=== PATIENT | female | born 1935 | race Caucasian/White ===

== ENCOUNTER 2018-03-10 15:00 | Inpatient (IN) | payer MEDICARE ==
[~2018-03-10] VITALS: Ht 163.8 cm; Wt 67.6 kg
--- NOTE | ~2018-03-10 | PN ---
PATIENT:BRADEN ORDAZ MEDICAL RECORD: [id number] LOCATION:[facility] ADMISSION DATE: 03/10/18 PROGRESS NOTE DATE OF SERVICE: 03/17/2018 SUBJECTIVE: The patient's case was discussed with staff. She has no new complaint. OBJECTIVE: The patient is in good behavioral control with limited insight about her condition. She does tolerate her medications well. ASSESSMENT: No change in diagnoses. PLAN: Brief supportive and educational interventions were made. Long-term prognosis is guarded. TRANSINT:[id number] Voice Confirmation ID: [id number] DOCUMENT ID: [id number] KADE ALLAN MD at 1436 CC: [id number] DICTATION DATE: 03/17/18 1509 FORCE VARIATION EQUIPMENT TENDER: 03/17/18 1537 ADM IN [place] [id number] [place] [address]
--- NOTE | ~2018-03-10 | PN ---
PATIENT:BRADEN ORDAZ MEDICAL RECORD: [id number] LOCATION:[facility] ADMISSION DATE: 03/10/18 PROGRESS NOTE DATE OF SERVICE: 03/23/2018 SUBJECTIVE: The patient's case was discussed with staff. She has no new complaint. OBJECTIVE: The patient is in good behavioral control with limited insight about her condition. She tolerates her medicines well. ASSESSMENT: No change in diagnoses. PLAN: Current medicines and therapies have been reviewed and will be maintained. Her long-term prognosis is guarded. I anticipate she can be transitioned back to the residential soon if this level of improvement is maintained. The patient seems to believe that she is more stable on her feet than she actually is. I have instructed her not to walk without assistance and I have asked that physical therapy be ordered. She says that she understands this, but I doubt she is going to remember it. I have asked the nursing staff to watch her extra closely to make sure she does not try to walk without assistance. TRANSINT:[id number] Voice Confirmation ID: [id number] DOCUMENT ID: [id number] KADE ALLAN MD at 1431 CC: [id number] DICTATION DATE: 03/23/18 1411 CONTACT LENS INSPECTOR: 03/23/18 1427 ADM IN [place] [id number] [place] [address]
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
--- NOTE | ~2018-03-10 | PN ---
PATIENT:BRADEN ORDAZ MEDICAL RECORD: [id number] LOCATION:[facility] ADMISSION DATE: 03/10/18 PROGRESS NOTE DATE OF SERVICE: 03/13/2018 SUBJECTIVE: The patient repeatedly states that she does not know why she is here. OBJECTIVE: Staff report the patient had been quite aggressive and easily agitated, but this morning is somewhat calmer. She also states repeatedly that she wants her car. On exam, mood is slightly anxious. Affect brittle. Speech is repetitive. Content of thought is negative for clear cut psychosis. Sensorium shows no change. ASSESSMENT: No change in diagnosis. PLAN: 1. Maintain current medication. 2. Continue supportive therapy. TRANSINT:[id number] Voice Confirmation ID: [id number] DOCUMENT ID: [id number] JAQUI LOMAS III, MD at 0535 CC: [id number] DICTATION DATE: 03/13/18 1122 SEED PRODUCTION FIELD SUPERVISOR: 03/13/18 1326 ADM IN [facility] [address] [place] [address]
--- NOTE | ~2018-03-10 | PN ---
PATIENT:BRADEN ORDAZ MEDICAL RECORD: [id number] LOCATION:[facility] ADMISSION DATE: 03/10/18 PROGRESS NOTE DATE OF SERVICE: 03/19/2018 SUBJECTIVE: The patient's case was discussed with staff. She has no new complaint. OBJECTIVE: The patient is in good behavioral control with poor insight about her condition. She generally tolerates her medicines well. ASSESSMENT: No change in diagnoses. PLAN: Brief supportive and educational interventions were made. Care Home prognosis is guarded. TRANSINT:[id number] Voice Confirmation ID: [id number] DOCUMENT ID: [id number] KADE ALLAN MD at 1412 CC: [id number] DICTATION DATE: 03/19/18 1347 SUPERINTENDENT TRANSMISSION: 03/19/18 1442 ADM IN [place] [id number] [place] [address]
--- NOTE | ~2018-03-10 | PN ---
PATIENT:BRADEN ORDAZ MEDICAL RECORD: [id number] LOCATION:[facility]112 ADMISSION DATE: 03/10/18 PROGRESS NOTE DATE OF SERVICE: 03/20/2018 SUBJECTIVE: The patient is hoping that she can go home soon. OBJECTIVE: The patient is somewhat dysphoric, but otherwise stable. She is taking medication as prescribed. Affect remains somewhat brittle. Speech is terse. Content of thought is negative for overt psychosis. Sensorium is unchanged. ASSESSMENT: No change in diagnosis. PLAN: 1. Continue current medication. 2. Continue supportive therapy. TRANSINT:[id number] Voice Confirmation ID: [id number] DOCUMENT ID: [id number] JAQUI LOMAS III, MD at 0628 CC: [id number] DICTATION DATE: 03/20/18 1109 BARREL RIFLER OPERATOR: 03/20/18 1442 ADM IN [place] [id number] [place] [address]
--- NOTE | ~2018-03-10 | PN ---
PATIENT:BRADEN ORDAZ MEDICAL RECORD: [id number] LOCATION:[facility] ADMISSION DATE: 03/10/18 PROGRESS NOTE DATE OF SERVICE: 03/12/2018 SUBJECTIVE: The patient's case was discussed with staff. She has no new complaint. OBJECTIVE: The patient is in good behavioral control with limited insight about her condition. She generally tolerates her medicines well. ASSESSMENT: No change in diagnoses. PLAN: Current medicines have been reviewed. I am going to reduce her Celexa slightly and will give consideration to a different antidepressant. I plan to taper the Celexa off completely. TRANSINT:[id number] Voice Confirmation ID: [id number] DOCUMENT ID: [id number] KADE ALLAN MD at 1324 CC: [id number] DICTATION DATE: 03/12/18 1415 SENIOR CONTROLS TECHNICIAN: 03/12/18 1431 ADM IN [place] [id number] [place] [id number]
--- NOTE | ~2018-03-10 | PN ---
PATIENT:BRADEN ORDAZ MEDICAL RECORD: [id number] LOCATION:[facility]el112 ADMISSION DATE: 03/10/18 PROGRESS NOTE DATE OF SERVICE: 03/16/2018 SUBJECTIVE: The patient's case was discussed with staff. She has no new complaint. OBJECTIVE: The patient denies intent to harm herself or others. She generally tolerates her medicines well. She is severely impaired cognitively. ASSESSMENT: No change in diagnoses. PLAN: The patient will be tapered off of her Celexa. Her long-term prognosis is again guarded. TRANSINT:[id number] Voice Confirmation ID: [id number] DOCUMENT ID: [id number] KADE ALLAN MD at 1458 CC: [id number] DICTATION DATE: 03/16/18 1427 MANAGER HOSPICE: 03/16/18 1438 ADM IN [place] [id number] [place] [id number]
--- NOTE | ~2018-03-10 | PN ---
PATIENT:BRADEN ORDAZ MEDICAL RECORD: [id number] LOCATION:[facility]el112 ADMISSION DATE: 03/10/18 PROGRESS NOTE DATE OF SERVICE: 03/24/2018 SUBJECTIVE: The patient's case was discussed with staff. She has no new complaint. OBJECTIVE: The patient is in good behavioral control with limited insight about her condition. She generally tolerates her medicines well. She has not been aggressive for several days. ASSESSMENT: No change in diagnoses. PLAN: The patient will be transitioned out of the hospital and back to the assisted living center tomorrow. Her long-term prognosis is guarded. Supportive and educational interventions were made. Follow up will be with her primary care physician. TRANSINT:[id number] Voice Confirmation ID: [id number] DOCUMENT ID: [id number] KADE ALLAN MD at 1631 CC: [id number] DICTATION DATE: 03/24/18 1458 MOTHERS HELPER: 03/24/18 1543 ADM IN [place] [id number] [place] [address]
--- NOTE | ~2018-03-10 | PN ---
PATIENT:BRADEN ORADZ MEDICAL RECORD: [id number] LOCATION:[facility] ADMISSION DATE: 03/10/18 PROGRESS NOTE DATE OF SERVICE: 03/18/2018 SUBJECTIVE: The patient's case was discussed with staff. She has no new complaint. OBJECTIVE: The patient is in good behavioral control with limited insight about her condition. She generally tolerates her medicines well. ASSESSMENT: No change in diagnoses. PLAN: Supportive and educational interventions were made. Long-term prognosis is guarded. I anticipate the patient can be transitioned out of the hospital soon if this level of improvement is maintained. TRANSINT:[id number] Voice Confirmation ID: [id number] DOCUMENT ID: [id number] KADE ALLAN MD at 1339 CC: [id number] DICTATION DATE: 03/18/[address]ROL COMMANDER: 03/18/18 1753 ADM IN [facility] [address] [place] [id number]
--- NOTE | ~2018-03-10 | PN ---
PATIENT:BRADEN ORDAZ MEDICAL RECORD: [id number] LOCATION:[facility]112 ADMISSION DATE: 03/10/18 PROGRESS NOTE DATE OF SERVICE: 03/25/2018 SUBJECTIVE: The patient's case was discussed with staff. She has no new complaint. OBJECTIVE: The patient is in good behavioral control with limited insight about her condition. She tolerates her medicines well. Eye contact is fair. Concentration is fair. ASSESSMENT: No change in diagnoses. PLAN: Supportive and educational interventions were made. Senior Living prognosis is guarded. I anticipate the patient can be transitioned out of the hospital today and follow up will be with her primary care physician. TRANSINT:[id number] Voice Confirmation ID: [id number] DOCUMENT ID: [id number] KADE ALLAN MD at 1200 CC: [id number] DICTATION DATE: 03/25/18 1651 SENIOR DATA MINING ANALYST: 03/25/18 2253 DIS IN 03/25/18 [place] [id number] [place] [address]
--- NOTE | ~2018-03-10 | PN ---
PATIENT:BRADEN ORDAZ MEDICAL RECORD: [id number] LOCATION:[facility]el112 ADMISSION DATE: 03/10/18 PROGRESS NOTE DATE OF SERVICE: 03/21/2018 SUBJECTIVE: No new complaint. OBJECTIVE: The patient has exhibited somewhat irritable mood. Affect remains rather childlike. Speech is slow in production and rate. Content of thought is negative for overt psychosis. Sensorium is unchanged. ASSESSMENT: No change in diagnosis. PLAN: 1. Continue current medication. 2. Continue supportive therapy. TRANSINT:[id number] Voice Confirmation ID: [id number] DOCUMENT ID: [id number] JAQUI LOMAS III, MD at 0706 CC: [id number] DICTATION DATE: 03/21/18 0831 MECHANICAL SHOP LABORER: 03/21/18 1211 ADM IN [place] [id number] [place] [address]
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
[~2018-03-10 15:00] MED LIST: ACETAMINOPHEN325 MG PO; ALENDRONATE SOD70 MG PO; AMOXIL875 MG PO; BAYER CHEWABLE81 MG PO; BENADRYL25 MG PO; CALTRATE 600 M600 M1 PO; CELEXA40 MG PO; ESTRACE 0.5 MG0.5 MG PO; FOLIC ACID1 MG PO; LASIX20 MG PO; LOPRESSOR25 MG PO; METHOTREXATE2.5 MG PO; PREDNISONE5 MG PO; TIROSINT13 MCG PO; VITAMIN B-122500 MCG PO; VITAMIN D31000 UNIT PO
[2018-03-10] MEDS ORDERED: ARICEPT5 MG PO (21:21)
[2018-03-10] MEDS ORDERED: VIC-FORTE CAPSUL1 MG PO (21:29)
[2018-03-10] MEDS ORDERED: FERROUS SULFAT325 MG PO (21:35)
[2018-03-10] MEDS ORDERED: MILK OF MAGNESI30 ML PO (21:37)
[2018-03-10] MEDS ORDERED: ACETAMINOPHEN325 MG PO (21:38)
[2018-03-10] MEDS ORDERED: CALCIUM 600 +1 EAC3 PO (21:39)
[2018-03-10] MEDS ORDERED: ATIVAN0.5 MG PO (21:43)
[2018-03-10] MEDS ORDERED: [UNRECOGNIZED DRUG - OTHER] IM (21:55)
[2018-03-10 22:54] LABS: APPEARANCE CLEAR (CLEAR); BACTERIA MODERATE /hpf (NONE SEEN); BILIRUBIN NEGATIVE (NEGATIVE); COLOR YELLOW (YELLOW); EPITHELIAL CELLS 0-5 /hpf (0-5); GLUCOSE NEGATIVE (NEGATIVE); KETONE NEGATIVE (NEGATIVE); NITRITE NEGATIVE (NEGATIVE); PROTEIN NEGATIVE (NEGATIVE); RED CELLS - URINE OCC /hpf (0-5); SPECIFIC GRAVITY 1.015 (1.005-1.020); UROBILINOGEN NORMAL (NORMAL); WHITE CELLS - URINE 0-5 /hpf (0-5)
[2018-03-11 07:18] LABS: BASOPHILS 0.4 % (0-2); EOSINOPHILS 5.9 % (0-7); HEMATOCRIT 37.9 % (36.0-48.0); HEMOGLOBIN 12.1 g/dL (12-16); IMMATURE GRANULOCYTES 0.5 % (0-5); LYMPHOCYTES 22.7 % (15-50); MCH 30.9 pg (26.0-34.0); MCHC 31.9 g/dL (31.0-37.0); MCV 96.7 fL (80.0-100.0); MEAN PLATELET VOLUME 9.5 fL (7.4-10.4); MONOCYTES 9.4 % (2-11); NEUTROPHILS 61.1 % (40-80); RBC 3.92 10x6/uL (4.00-5.40); RDW 15.5 % (11.5-14.5)
[2018-03-11 07:28] LABS: PLATELET COUNT 233 10x3/uL (130-400)
[2018-03-11 07:56] LABS: ALBUMIN 2.4 g/dL (3.4-5.0); BILIRUBIN - TOTAL 0.36 mg/dL (0.2-1.3); CALCIUM 8.8 mg/dL (8.5-10.1); CARBON DIOXIDE 27.6 mmol/L (21.0-32.0); CHOL - HDL RATIO 3.9 ratio (2.3-4.1); LDL-HDL RATIO 2.4 ratio (1.5-3.5); POTASSIUM - SERUM 3.6 mmol/L (3.5-5.1); PROTEIN - SERUM 6.3 g/dL (6.4-8.2); THYROID STIMULATING HORMONE 0.02 uIU/mL (0.36-3.74)
[2018-03-11 09:30] VITALS: BP 171/89
[2018-03-11 15:13] VITALS: BP 131/75
[2018-03-11 20:02] VITALS: BP 141/81
[2018-03-12 07:27] LABS: RAPID PLASMA REAGIN Non Reactive (Non Reactive)
[2018-03-12 08:03] VITALS: BP 115/62
[2018-03-12 08:23] LABS: FOLATE (FOLIC ACID) - SERUM 16.1 ng/mL (>3.0)
[2018-03-12 20:17] VITALS: BP 144/68
[2018-03-13 20:35] VITALS: BP 140/67
[2018-03-14 09:35] VITALS: BP 129/61
[2018-03-14 20:50] VITALS: BP 144/58
[2018-03-15 08:49] VITALS: BP 152/72
[2018-03-15 20:15] VITALS: BP 138/56
[2018-03-16 09:35] VITALS: BP 153/71
[2018-03-16 10:08] VITALS: Ht 163.8 cm; Wt 67.6 kg
[2018-03-16 20:32] VITALS: BP 139/81
[2018-03-17 08:26] VITALS: BP 159/63
[2018-03-17 20:21] VITALS: BP 141/72
[2018-03-18 09:33] VITALS: BP 160/70
[2018-03-18 19:21] VITALS: BP 142/62
[2018-03-19 07:00] VITALS: BP 157/71
[2018-03-19 21:53] VITALS: BP 150/77
[2018-03-20 18:43] VITALS: BP 146/62
[2018-03-20 19:27] VITALS: BP 154/64
[2018-03-21 10:33] VITALS: BP 119/71
[2018-03-21 19:42] VITALS: BP 131/56
[2018-03-22 07:00] VITALS: BP 137/66
[2018-03-22 19:36] VITALS: BP 148/60
[2018-03-23 07:47] VITALS: BP 158/71
[2018-03-23 20:32] VITALS: BP 154/72
[2018-03-24 07:25] VITALS: BP 138/69
[2018-03-24] MEDS ORDERED: NORVASC2.5 MG PO (15:00)
[2018-03-24] MEDS ORDERED: ARICEPT5 MG PO (15:00)
[2018-03-24] MEDS ORDERED: LEVOXYL100 MCG PO (15:01)
[2018-03-24 20:20] VITALS: BP 146/61
[2018-03-25 09:39] VITALS: BP 140/64
== END 2018-03-25 13:15 | DRG 57 ==
LOC: D.PSYCH 15:00
PROVIDERS: Psychiatry & Neurology Psychiatry
DX: G30.1 Alzheimer's disease with late onset (principal); F02.81 Dementia in other diseases classified elsewhere, unspecified severity, with behavioral disturbance; M31.7 Microscopic polyangiitis; I10 Essential (primary) hypertension; E03.9 Hypothyroidism, unspecified; Z86.73 Personal history of transient ischemic attack (TIA), and cerebral infarction without residual deficits; I48.91 Unspecified atrial fibrillation; F41.8 Other specified anxiety disorders; R00.1 Bradycardia, unspecified

== ENCOUNTER 2020-01-02 12:13 | Emergency (ER) | payer MEDICARE ==
[~2020-01-02] VITALS: Ht 163.8 cm; Wt 66.8 kg
[~2020-01-02 12:13] MED LIST changes: +ARICEPT5 MG PO; +ATIVAN0.5 MG PO; +CALCIUM 600 +1 EAC3 PO; +FERROUS SULFAT325 MG PO; +LEVOXYL100 MCG PO; +MILK OF MAGNESI30 ML PO; +NORVASC2.5 MG PO; +VIC-FORTE CAPSUL1 MG PO; +[UNRECOGNIZED DRUG - OTHER] IM
[2020-01-02 12:21] VITALS: Ht 163.8 cm; Wt 66.8 kg
[2020-01-02 12:38] LABS: BASOPHILS 0.3 % (0-2); EOSINOPHILS 1.2 % (0-7); HEMATOCRIT 40.4 % (36.0-48.0); HEMOGLOBIN 12.8 g/dL (12-16); IMMATURE GRANULOCYTES 0.3 % (0-5); LYMPHOCYTES 16.9 % (15-50); MCH 29.8 pg (26.0-34.0); MCHC 31.7 g/dL (31.0-37.0); MCV 94.2 fL (80.0-100.0); MEAN PLATELET VOLUME 9.1 fL (7.4-10.4); MONOCYTES 4.6 % (2-11); NEUTROPHILS 76.7 % (40-80); PLATELET COUNT 240 10x3/uL (130-400); RBC 4.29 10x6/uL (4.00-5.40); RDW 15.2 % (11.5-14.5); WBC 9.8 10x3/uL (4.8-10.8)
[2020-01-02 12:59] LABS: APTT 21.7 SECONDS (22.8-39.4); PROTIME 13.2 SECONDS (11.6-15.0)
[2020-01-02 13:04] LABS: ANION GAP 13.1 mmol/L (8-16); CALCIUM 9.2 mg/dL (8.5-10.1); CARBON DIOXIDE 28.1 mmol/L (21.0-32.0); CREATININE - SERUM 0.8 mg/dL (0.6-1.3); POTASSIUM - SERUM 4.2 mmol/L (3.5-5.1)
[2020-01-02 13:11] LABS: ALBUMIN 2.5 g/dL (3.4-5.0); BILIRUBIN - TOTAL 0.26 mg/dL (0.2-1.3); PROTEIN - SERUM 6.6 g/dL (6.4-8.2)
[2020-01-02 18:28] VITALS: BP 131/72
== END 2020-01-02 17:45 | disposition other institution (70) ==
LOC: D.ER 12:13
PROVIDERS: Family Medicine
DX: I63.9 Cerebral infarction, unspecified (principal); I10 Essential (primary) hypertension; F03.90 Unspecified dementia, unspecified severity, without behavioral disturbance, psychotic disturbance, mood disturbance, and anxiety; Z86.73 Personal history of transient ischemic attack (TIA), and cerebral infarction without residual deficits; E07.9 Disorder of thyroid, unspecified; I48.91 Unspecified atrial fibrillation